=== PATIENT | male | born 1995 | race Caucasian/White ===

== ENCOUNTER 2018-04-25 14:55 | Emergency (ER) | payer MEDICAID, OTHER ==
[2018-04-25 15:30] VITALS: BP 136/84
--- NOTE | 2018-04-25 15:34 | UC ---
Shoulder Pain HPI - HPI Summary HPI Summary: 22 yo male presents with right shoulder pain. He tells me that he initially injured his shoulder in october of 2017 while reaching overhead to fix something at home. At that time had decreased ROM and pain, did not seek medical treatment, and eventually improved. 3 days ago pt was under his trailer fixing a water line and hear a pop and immediate pain in his right shoulder. Since that time has not been able to lift his arm above his head and has had pain. He works as a mixed crop and livestock farmer. Denies numbness or tingling. Has been taking ibuprofen for pain with mild relief. - History of Current Complaint Chief Complaint: UCUpperExtremity Stated Complaint: SHOULDER INJURY Time Seen by Provider: 04/25/18 15:33 Hx Obtained From: Patient Severity Initially: Moderate Severity Currently: Moderate Pain Intensity: 5 Pain Scale Used: 0-10 Numeric Aggravating Factor(s): Movement, Lifting - Allergies/Home Medications Allergies/Adverse Reactions: Allergies Allergy/AdvReac Type Severity Reaction Status Date / Time No Known Allergies Allergy Verified 04/25/18 15:30 Home Medications: Home Medications Diarrhea Medication 04/25/18 [History] PMH/Surg Hx/FS Hx/Imm Hx - Additional Past Medical History Additional PMH: None Previously Healthy: Yes - Surgical History Surgical History: None - Family History Known Family History: Positive: None Negative: Blood Disorder - Social History Occupation: Employed Full-time Lives: With Family Alcohol Use: Weekly Substance Use Type: None Smoking Status (MU): Never Smoked Tobacco Review of Systems Constitutional: Negative Skin: Negative Respiratory: Negative Cardiovascular: Negative Neurovascular: Negative Musculoskeletal: Decreased ROM - Right shoulder, Other: - Right shoulder pain Neurological: Negative Psychological: Negative All Other Systems Reviewed And Are Negative: Yes Physical Exam - Summary Physical Exam Summary: GENERAL: NAD. WDWN. No pain distress. SKIN: No rashes, sores, lesions, or open wounds. NECK: Supple. Nontender. No lymphadenopathy. CHEST: No accessory muscle use. Breathing comfortably and in no distress. CV: RRR. Without m/r/g. Pulses intact radial and ulnar. MSK: RIGHT SHOULDER: TTP over anterior RTC. Flexion to 90 deg before pain. Strength 4/5 compared to left. No edema or obvious bony deformities. Positive neer, apprehension, and pathak. NEURO: Alert. Sensations intact hand and all fingers. PSYCH: Age appropriate behavior. Triage Information Reviewed: Yes Vital Signs: Initial Vital Signs Temp 97.2 F 04/25/18 15:26 Pulse 98 04/25/18 15:26 Resp 16 04/25/18 15:26 BP 136/84 04/25/18 15:26 Pulse Ox 99 04/25/18 15:26 Shoulder Course/Dx - Course Course Of Treatment: XR: IMPRESSION: NEGATIVE EXAMINATION. Suspect RTC injury. Toradol IM 30mg given in clinc. Advised to rest and apply heat. F/u with sports medicine. - Differential Dx/Diagnosis Provider Diagnoses: Right shoulder pain Discharge - Sign-Out/Discharge Documenting (check all that apply): Discharge/Admit/Transfer - Discharge Plan Condition: Stable Disposition: HOME Patient Education Materials: Rotator Cuff Injury (ED) Forms: *Work Release Referrals: Tan Pedro [Primary Care Provider] - [facility] [Provider Group] - As Soon As Possible Additional Instructions: If you develop a fever, shortness of breath, chest pain, new or worsening symptoms - please call your PCP or go to the ED. 1) Rest and Ice your shoulder 2) Please call Sports Medicine at the number below to schedule a follow up appointment as soon as possible - Billing Disposition and Condition Condition: STABLE Disposition: Home
--- NOTE | 2018-04-25 15:55 | RAD ---
INDICATION: Chronic pain right shoulder COMPARISON: None TECHNIQUE: Routine frontal, Y and axial views were obtained. FINDINGS: The bony structures, joint spaces, and soft tissues are normal for age. IMPRESSION: NEGATIVE EXAMINATION.
[2018-04-25] MEDS ORDERED: Ketorolac INJ* 30 MG/ML 1 ML VIAL IM ONE (16:14)
[2018-04-25] MEDS ORDERED: Ketorolac INJ* 30 MG/ML 1 ML VIAL ONE (16:24)
== END 2018-04-25 16:34 | disposition home or self-care (01) ==
LOC: UCEAST 14:55
DX: M25.511 Pain in right shoulder (principal)
CPT/HCPCS: 96372; 99211; G0463; J1885

== ENCOUNTER 2019-01-24 19:14 | Emergency (ER) | payer OTHER, MEDICAID ==
[2019-01-24 19:22] VITALS: BP 129/78
[2019-01-24] MEDS ORDERED: Amoxicillin/Clavulanate TAB* 875 MG PO ONE (19:57)
--- NOTE | 2019-01-24 20:01 | UC ---
Dental HPI - HPI Summary HPI Summary: 23 year old male presents with 4 day history of left upper dental pain. States this morning he woke up with facial swelling as well. He contacted his dentist and he has an appointment in 2 weeks. Has been taking ibuprofen 400 mg every 6 hours with relief in the pain. Denies fever, chills, trismus, sore throat, dysphagia, or difficulty breathing. - History of Current Complaint Chief Complaint: UCDentalProblem Stated Complaint: DENTAL Time Seen by Provider: 01/24/19 19:36 Hx Obtained From: Patient Pain Intensity: 3 - Allergies/Home Medications Allergies/Adverse Reactions: Allergies Allergy/AdvReac Type Severity Reaction Status Date / Time No Known Allergies Allergy Verified 01/24/19 19:23 Home Medications: Home Medications Ibuprofen TAB* [Motrin TAB* 400 MG] 400 mg PO Q6H 01/24/19 [History Confirmed ] PMH/Surg Hx/FS Hx/Imm Hx Previously Healthy: Yes - Denies significant PMH - Surgical History Surgical History: None - Family History Known Family History: Positive: None Negative: Blood Disorder - Social History Occupation: Employed Full-time Lives: With Family Alcohol Use: Occasionally Substance Use Type: None Smoking Status (MU): Never Smoked Tobacco Review of Systems All Other Systems Reviewed And Are Negative: Yes Constitutional: Negative: Fever, Chills ENT: Positive: Dental Pain, Other - facial swelling. Negative: Sore Throat Respiratory: Positive: Negative Cardiovascular: Positive: Negative Gastrointestinal: Positive: Negative Genitourinary: Positive: Negative Musculoskeletal: Positive: Negative Neurological: Positive: Negative Is Patient Immunocompromised?: No Physical Exam - Summary Physical Exam Summary: GENERAL APPEARANCE: Well developed, well nourished, alert and cooperative, and appears to be in no acute distress. HEAD: Mild facial swelling over the left maxilla. THROAT: Pharynx normal. No tonsilar inflammation, swelling, exudate, or lesions. Uvula midline. Multiple teeth in various amounts of decay, tenderness at the base of the 1st left upper molar with erythema and swelling. No induration or fluctuance noted. NECK: Neck supple, non-tender without lymphadenopathy. CARDIAC: Normal S1 and S2. No S3, S4 or murmurs. Rhythm is regular. There is no peripheral edema, cyanosis or pallor. Extremities are warm and well perfused. Capillary refill is less than 2 seconds. Peripheral pulses intact. LUNGS: Clear to auscultation without rales, rhonchi, wheezing or diminished breath sounds. ABDOMEN: Positive bowel sounds. Soft, nondistended, nontender. No guarding or rebound. No masses or hepatosplenomegally. MUSKULOSKELETAL: ROM intact to all extremities. No joint erythema or tenderness. Normal muscular development. Normal gait. SKIN: Skin normal color, texture and turgor with no lesions or eruptions. Triage Information Reviewed: Yes Vital Signs: Initial Vital Signs Temp 98.0 F 01/24/19 19:18 Pulse 95 01/24/19 19:18 Resp 16 01/24/19 19:18 BP 129/78 01/24/19 19:18 Pulse Ox 98 01/24/19 19:18 Vital Signs Reviewed: Yes Dental Complaint Course/Dx - Course Course Of Treatment: 23 year old male presents with 4 day history of left upper dental pain. States this morning he woke up with facial swelling as well. He contacted his dentist and he has an appointment in 2 weeks. Has been taking ibuprofen 400 mg every 6 hours with relief in the pain. Denies fever, chills, trismus, sore throat, dysphagia, or difficulty breathing. Afebrile. VSS. Exam remarkable for some mild left facial swelling over the maxilla, multiple teeth in various amounts of decay, tenderness at the base of the 1st left upper molar with erythema and swelling. No induration or fluctuance noted. Will treat for an early dental abscess with Augmentin 875 mg BID x 10 days. He was given the first dose in the clinic and continue to use the ibuprofen as needed for pain. He is to keep his appointment with his dentist as scheduled. Anticipatory guidance and warning symptoms reviewed with patient. Verbalizes understanding and agrees with POC. - Differential Dx/Diagnosis Differential Diagnosis/Dx: Dental Abscess, Dental Caries, Fractured Tooth, Odontogenic Pain, Peridontic Disease Provider Diagnosis: Dental abscess Discharge - Sign-Out/Discharge Documenting (check all that apply): Patient Departure All imaging exams completed and their final reports reviewed: No Studies - Discharge Plan Condition: Stable Disposition: HOME Prescriptions: Amoxicillin/Clavulanate TAB* [Augmentin TAB 875*] 875 mg PO BID #20 tab Patient Education Materials: Dental Abscess (ED) Referrals: Karn RPA-C,Tan F. [Primary Care Provider] - Additional Instructions: Start Augmentin 875 mg twice daily for 10 days for the dental infection. We gave you a dose of antibiotic in the clinic tonight. Take with food to avoid upset stomach. Be sure to complete the entire course even if feeling better. Take acetaminophen (Tylenol) or ibuprofen (Advil, Motrin) according to directions as needed for pain. Be sure to rinse your mouth out with a warm salt water solution after every time you eat to remove any debris. Keep your appointment with your dentist as scheduled. Seek immediate medical attention in the emergency room if you develop fever greater than 100.5 F, you are unable to open of close your mouth, are unable to swallow, have difficulty breathing, or any worsening of symptoms. - Billing Disposition and Condition Condition: STABLE Disposition: Home
== END 2019-01-24 20:10 | disposition home or self-care (01) ==
LOC: UCEAST 19:14
DX: K04.7 Periapical abscess without sinus (principal)
CPT/HCPCS: 99212; A9270-GY; G0463

== ENCOUNTER 2019-07-09 09:44 | Emergency (ER) | payer BC, MEDICAID, OTHER ==
[2019-07-09 10:00] VITALS: BP 131/90
[2019-07-09] MEDS ORDERED: Ketorolac *IM* INJ* 60 MG/2 ML VIAL IM ONE (10:16)
[2019-07-09] MEDS ORDERED: Carisoprodol TAB* 350 MG PO ONE (10:16)
--- NOTE | 2019-07-09 10:20 | UC ---
Neck Pain HPI - HPI Summary HPI Summary: patient has ahd "neck spasms" many times in past, usually resolves with heat pack within hours. yesterday was moving heavy items and also weed whacking no pain last night but awoke with stiffness L lateral neck, took Tylenol X- strength 4 hours ago w/o relief. has to keep head bent to R and cannot let head bend down d/t pain. drove patient here. pt denies ever having neck injury or accident - History of Current Complaint Chief Complaint: UCBackPain Stated Complaint: NECK PAIN Time Seen by Provider: 07/09/19 10:10 Hx Obtained From: Patient, Family/Emergency Spill Response Technician Onset/Duration: Sudden Onset Severity: Severe Pain Intensity: 6 Location: Discrete At: - L lateral neck and shoulder Character: Sharp, Stiff, Spasmotic Aggravating Factors: Position, Movement Alleviating Factors: Position Associated Signs & Symptoms: Negative: Swelling, Redness, Fever, Weakness, Headache Related History: Similar Episode/Dx As: - muscle spasm - Allergies/Home Medications Allergies/Adverse Reactions: Allergies Allergy/AdvReac Type Severity Reaction Status Date / Time No Known Allergies Allergy Verified 07/09/19 09:55 Home Medications: Home Medications Acetaminophen [Acetaminophen Extra Strength] 1,000 mg PO ONCE 07/09/19 [History Confirmed 07/09/19] PMH/Surg Hx/FS Hx/Imm Hx Previously Healthy: Yes - Surgical History Surgical History: None - Family History Known Family History: Positive: None Negative: Blood Disorder - Social History Occupation: Employed Full-time Lives: With Family Alcohol Use: Weekly Substance Use Type: None Smoking Status (MU): Never Smoked Tobacco Review of Systems All Other Systems Reviewed And Are Negative: Yes Constitutional: Positive: Negative Skin: Positive: Negative. Negative: Rash Respiratory: Positive: Negative Cardiovascular: Positive: Negative Musculoskeletal: Positive: Other: - neck pain, decreased ROM Neurological: Positive: Negative. Negative: Headache, Weakness Psychological: Positive: Negative Is Patient Immunocompromised?: No Physical Exam Triage Information Reviewed: Yes Appearance: Well-Appearing, No Pain Distress, Well-Nourished Vital Signs: Initial Vital Signs Temp 98 F 07/09/19 09:56 Pulse 75 07/09/19 09:56 Resp 18 07/09/19 09:56 BP 131/90 07/09/19 09:56 Pulse Ox 99 07/09/19 09:56 Vital Signs Reviewed: Yes Neck: Positive: No Lymphadenopathy, Tenderness @ - L lateral neck, patient keeps neck flexed to R for comfort Respiratory Exam: Normal Respiratory: Positive: Lungs clear Cardiovascular Exam: Normal Cardiovascular: Positive: RRR Neurological Exam: Normal Psychological Exam: Normal Skin Exam: Normal Skin: Negative: Rashes Re-Evaluation - Re-Evaluation First Eval Re-Evaluation Time: 10:50 - patient reports neck spasms are improving, less painful. lasting shorter periods of time Change: Improved Neck Pain Course/Dx - Differential Dx/Diagnosis Differential Dx/HQI/PQRI: Meningitis, Strain, Torticollis, Trauma Provider Diagnosis: Neck muscle spasm Discharge ED - Sign-Out/Discharge Documenting (check all that apply): Patient Departure All imaging exams completed and their final reports reviewed: No Studies - Discharge Plan Condition: Improved Disposition: HOME Prescriptions: Carisoprodol TAB* [Soma TAB*] 350 mg PO Q6H PRN #12 tab MDD 4 PRN Reason: Spasms Patient Education Materials: Muscle Spasm (ED) Forms: *Work Release Referrals: Tan Pisano PA [Primary Care Provider] - 2 Days (if no better) Additional Instructions: Do not take ibuprofen or Aleve today start ibuprofen 800mg every 6-8 hours as needed for pain use the muscle relaxer (SOMA) as directed - do not drive or drink alcohol while using report to ER if your pain worsens - Billing Disposition and Condition Condition: IMPROVED Disposition: Home - Attestation Statements Provider Attestation: I was available for consult. This patient was seen by the MAVERICK. The patient was not presented to , seen by or examined by ne -Bill Mallory MD
== END 2019-07-09 11:25 | disposition home or self-care (01) ==
LOC: UCEAST 09:44
DX: M62.838 Other muscle spasm (principal)
CPT/HCPCS: 96372; 99212; A9270-GY; G0463; J1885

== ENCOUNTER 2019-07-10 22:12 | Emergency (ER) | payer BC ==
[2019-07-10 22:29] VITALS: BP 130/87
== END 2019-07-10 23:44 | disposition left against medical advice (07) ==
LOC: ED 22:12
DX: M54.2 Cervicalgia (principal); Z53.21 Procedure and treatment not carried out due to patient leaving prior to being seen by health care provider
CPT/HCPCS: 99282

== ENCOUNTER 2019-08-28 09:46 | Emergency (ER) | payer OTHER, MEDICAID ==
[2019-08-28 09:55] VITALS: BP 126/80
--- NOTE | 2019-08-28 10:01 | UC ---
Skin Complaint HPI - HPI Summary HPI Summary: Patient is a 24yo male presenting with for "intense itchiness" of b/l palms and b/l soles of feet x7 days. Patient also notes swelling of hands and fingers of both hands since yesterday. Denies swelling of other body parts including lips, tongue, and throat. Denies difficulty breathin and wheezing. Denies anything like this in the past. Denies FHx of anything like this. 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 Patient states he has taken benadryl and zyrtec without relief. - History of Current Complaint Chief Complaint: UCUpperExtremity Stated Complaint: FINGER AND HAND SWELLING Hx Obtained From: Patient, Family/Librarian [employer] Collections Onset/Duration: Sudden Onset, Lasting Days Timing: Constant Current Severity: Moderate Pain Intensity: 6 Pain Scale Used: 0-10 Numeric - Allergy/Home Medications Allergies/Adverse Reactions: Allergies Allergy/AdvReac Type Severity Reaction Status Date / Time No Known Allergies Allergy Verified 08/28/19 09:54 Home Medications: Home Medications diphenhydrAMINE HCl [Benadryl Allergy] 50 mg PO 08/28/19 [History] PMH/Surg Hx/FS Hx/Imm Hx Previously Healthy: Yes - Surgical History Surgical History: None - Family History Known Family History: Positive: None Negative: Blood Disorder - Social History Occupation: Employed Full-time Lives: With Family Alcohol Use: Weekly Substance Use Type: None Smoking Status (MU): Never Smoked Tobacco Review of Systems All Other Systems Reviewed And Are Negative: Yes Constitutional: Positive: Negative Skin: Positive: Rash - b/l hands and feet ENT: Positive: Negative Respiratory: Positive: Negative. Negative: Shortness Of Breath Cardiovascular: Positive: Negative Gastrointestinal: Positive: Negative Musculoskeletal: Positive: Edema - b/l hands/fingers Physical Exam Triage Information Reviewed: Yes Appearance: Well-Appearing, No Pain Distress, Well-Nourished Vital Signs: Initial Vital Signs Temp 98.2 F 08/28/19 09:52 Pulse 92 08/28/19 09:52 Resp 18 08/28/19 09:52 BP 126/80 08/28/19 09:52 Pulse Ox 99 08/28/19 09:52 Vital Signs Reviewed: Yes Eyes: Positive: Conjunctiva Clear ENT: Positive: Hearing grossly normal, Pharynx normal - NO EDEMA, Uvula midline , Other - no edema of lips or tongue. Negative: Tonsillar swelling, Trismus, Muffled voice Neck: Positive: Supple Respiratory Exam: Normal Respiratory: Positive: Lungs clear, Normal breath sounds, No respiratory distress. Negative: Crackles, Rhonchi, Stridor, Wheezing Cardiovascular Exam: Normal Cardiovascular: Positive: RRR Musculoskeletal: Positive: Edema @ - b/l hands and fingers Neurological: Positive: Alert Psychological: Positive: Age Appropriate Behavior Skin: Positive: Rashes - pruritic reticulated rash noted over b/l palms and b/l soles of feet Course/Dx - Course Course Of Treatment: Educated patient on urticaria, angioedema, and possible allergic source of symptoms. I treated with prednisone and instructed to limit exposure as much as possible. He may also continue zyrtec and benadry to alleviate symptoms. Instructed to follow up with PCP if symptoms persist or to go to ED if they worsen, including signs of anaphylaxis. Patient voiced understanding and agreed with the treatment plan. - Diagnoses Provider Diagnosis: Idiopathic [id number] Discharge ED - Sign-Out/Discharge Documenting (check all that apply): Patient Departure All imaging exams completed and their final reports reviewed: No Studies - Discharge Plan Condition: Stable Disposition: HOME Prescriptions: predniSONE TAB* [Deltasone 20 MG TAB*] 40 mg PO DAILY #10 tab Patient Education Materials: Urticaria (ED), Angioedema (ED) Forms: *Work Release Referrals: Tan Pisano PA [Primary Care Provider] - If Needed Additional Instructions: As discussed, take prednisone as prescribed to help reduce itching and swelling. You may continue to take benadryl and zyrtec as directed. Limit contact with possible allergens as much as possible. Follow up with your PCP if symptoms persist. Go to the emergency room if you experience difficulty breathing or lip, tongue, or throat swelling. - Billing Disposition and Condition Condition: STABLE Disposition: Home
== END 2019-08-28 10:27 | disposition home or self-care (01) ==
LOC: UCEAST 09:46
DX: T78.3XXA Angioneurotic edema, initial encounter (principal); L50.1 Idiopathic urticaria
CPT/HCPCS: 99212; G0463

== ENCOUNTER 2019-08-29 11:44 | Emergency (ER) | payer OTHER, MEDICAID ==
[2019-08-29] MEDS ORDERED: Albuterol HFA INHALER* 8 gm MDI INH ONE (13:40)
[2019-08-29 14:04] VITALS: BP 134/72
--- NOTE | 2019-08-29 15:10 | ED ---
Allergic Reaction/Systemic - HPI Summary HPI Summary: This patient is a 24-year-old male with no past significant medical history presenting to the ED with possible allergic reaction. 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 On this date, he developed swelling of the bilateral hands and feet and mild cough. He was seen at urgent care, given Benadryl and prednisone with good relief. The next day he returned and started to develop a worsening cough and feelings of throat tightness. Today he presents with mild swelling of his hands and feet and feeling of throat tightness. He took Benadryl at home and on arrival to the ED , patient states he feels improved. He does feel as though he has been wheezing , but denies this currently. Family at bedside states he had asthma as a child and feels he may have this again he denies any hives or other rash. Denies any pruritus. - History of Current Complaint Chief Complaint: EDAllergicReaction Time Seen by Provider: 08/29/19 13:11 Hx Obtained From: Patient Onset/Duration: Sudden Onset Timing: Constant Severity Initially: Moderate Severity Currently: Moderate Pain Intensity: 0 Pain Scale Used: 0-10 Numeric Associated Signs And Symptoms: Positive: Cough Wheezing, Throat Tightening. Negative: Difficulty Breathing, Hoarseness, Lightheadedness, Nausea, Syncope, Vomiting - Allergies/Home Medications Allergies/Adverse Reactions: Allergies Allergy/AdvReac Type Severity Reaction Status Date / Time No Known Allergies Allergy Verified 08/29/19 12:09 PMH/Surg Hx/FS Hx/Imm Hx Previously Healthy: Yes Endocrine/Hematology History: Denies: Hx Diabetes, Hx Thyroid Disease Cardiovascular History: Denies: Hx Hypertension Respiratory History: Denies: Hx Asthma, Hx Chronic Obstructive Pulmonary Disease (COPD) GI History: Denies: Hx Ulcer - Immunization History Hx Pertussis Vaccination: No Immunizations Up to Date: Yes Infectious Disease History: No Infectious Disease History: Denies: Hx Hepatitis, Hx Human Immunodeficiency Virus (HIV), Traveled Outside the [place] in Last 30 Days - Family History Known Family History: Positive: None Negative: Blood Disorder - Social History Occupation: Employed Full-time Lives: With Family Alcohol Use: Weekly Hx Substance Use: No Substance Use Type: Reports: None Hx Tobacco Use: No Smoking Status (MU): Never Smoked Tobacco Review of Systems Negative: Fever, Chills, Fatigue, Skin Diaphoresis Negative: Palpitations, Chest Pain Negative: Shortness Of Breath, Cough Genitourinary: Negative Positive: no symptoms reported, see HPI Negative: Arthralgia, Myalgia Skin: Negative Neurological: Negative All Other Systems Reviewed And Are Negative: Yes Physical Exam Triage Information Reviewed: Yes Vital Signs On Initial Exam: Initial Vitals Temp Pulse Resp BP Pulse Ox 98.2 F 95 16 157/84 98 08/29/19 12:03 08/29/19 12:03 08/29/19 12:03 08/29/19 12:03 08/29/19 12:03 Vital Signs Reviewed: Yes Appearance: Positive: Well-Appearing, No Pain Distress, Well-Nourished Skin: Positive: Warm, Skin Color Reflects Adequate Perfusion Head/Face: Positive: Normal Head/Face Inspection Eyes: Positive: EOMI, JOELLE, Conjunctiva Clear Neck: Positive: Supple, Nontender, No Lymphadenopathy Respiratory/Lung Sounds: Positive: Clear to Auscultation, Breath Sounds Present Cardiovascular: Positive: RRR, Pulses are Symmetrical in both Upper and Lower Extremities Musculoskeletal: Positive: Normal, Strength/ROM Intact Neurological: Positive: Speech Normal Psychiatric: Positive: Normal, Affect/Mood Appropriate AVPU Assessment: Alert Procedures - Sedation Patient Received Moderate/Deep Sedation with Procedure: No Diagnostics - Vital Signs Vital Signs Temp Pulse Resp BP Pulse Ox 08/29/19 14:02 97.8 F 84 16 134/72 100 08/29/19 12:03 98.2 F 95 16 157/84 98 - Laboratory Lab Statement: Any lab studies that have been ordered have been reviewed, and results considered in the medical decision making process. Allergic Reaction Course/Dx - Course Course Of Treatment: During his course of treatment, the patient is evaluated for a possible allergic reaction. Patient was given prednisone and Benadryl 2 days ago with good relief of his symptoms. When he enters the work environment again, he states symptoms persist and he had cough, congestion and feeling of throat tightness today. He also had some wheezing which is since resolved. He took his prednisone and Benadryl prior to arrival. He states he is feeling improved. He was given an albuterol inhaler in the ED. Lungs CTA, RRR. No obvious signs of distress. Airway patent. No wheezing bilaterally. Patient is encouraged to not return to his place of work as this is a new environment which is causing his new symptoms. He will continue to take the prednisone and Benadryl as prescribed. Patient is encouraged inhaler, note given for work and follow up with pulmonology d/t his wheezing symptoms over the past few months. - Diagnoses Differential Diagnosis/HQI/PQRI: Positive: Anaphylaxis, Angioedema, Bronchospasm , Local Allergic Reaction Provider Diagnoses: Allergic reaction Discharge ED - Sign-Out/Discharge Documenting (check all that apply): Patient Departure - Discharge Plan Condition: Good Disposition: HOME Patient Education Materials: General Allergic Reaction (ED), Allergy Testing ( ED) Forms: *Work Release Referrals: Tan Pisano PA [Primary Care Provider] - Chio Smalls MD [Medical Doctor] - Additional Instructions: Please follow up with pulmonology and also obtain allergy testing Continue taking Prednisone once daily in the morning Benadryl for continuing symptoms Albuterol inhaler as needed for any shortness of breath - Billing Disposition and Condition Condition: GOOD Disposition: Home - Attestation Statements Provider Attestation: I was available for consult. This patient was seen by the MAVERICK. The patient was not presented to, seen by, or examined by me. -Geovani
== END 2019-08-29 14:02 | disposition home or self-care (01) ==
LOC: ED 11:44
DX: M79.89 Other specified soft tissue disorders (principal); R07.0 Pain in throat; T78.40XA Allergy, unspecified, initial encounter; X58.XXXA Exposure to other specified factors, initial encounter
CPT/HCPCS: 99282; A9270-GY

== ENCOUNTER 2019-11-02 18:43 | Emergency (ER) | payer OTHER, MEDICAID ==
--- OUTSIDE RECORDS SUMMARY | 2019-11-02 18:48 | XMS REPORT | Continuity of Care Document ---
:1995 External Reference #:[id number] Author Name CASE Francisco (transmitted by agent of provider Omar Ragsdale) Address [address] [facility] [place] [address] Care Team Providers Name Role Phone Tan Pisano RPA-C - Physician Care Team Information Personal Lines Account Manager [phone] Record Producer Problems Active Problems Provider Date Food anaphylaxis Hailey Gamez, RPA-C Onset: 09/12/2019 Social History Type Date Description Comments Sex Unknown Tobacco Use Start: Unknown Patient has never smoked Smoking Status Reviewed: 09/28/19 Patient has never smoked Allergies, Adverse Reactions, Alerts Description No Known Drug Allergies Medications Active Medications SIG Qnty Indications Ordering Provider Date Cetirizine HCL take one tablet 30tabs T78.09xA Juan David Jones, 09/12/2019 10mg by mouth every RPA-C Tablets day at bedtime Immunizations Description No Information Available Vital Signs Date Vital Result Comment 09/28/2019 9:34am BP Systolic 124 mmHg BP Diastolic 86 mmHg Height 72 inches 6'0" Heart Rate 84 /min Respiratory Rate 16 /min Body Temperature 98.0 F O2 % BldC Oximetry 98 % 09/12/2019 8:30am BP Systolic 140 mmHg BP Diastolic 92 mmHg Height 72 inches 6'0" Weight 258.00 lb BMI (Body Mass Index) 35.0 kg/m2 Heart Rate 92 /min Respiratory Rate 16 /min Body Temperature 98.2 F O2 % BldC Oximetry 98 % Results Description No Information Available Procedures Date Code Description Status 09/12/2019 91943 Allergy Tests Percutaneous W/ Allergenic Extracts Completed Medical Devices Description No Information Available Encounters Type Date Location Provider Dx Diagnosis Office Visit 09/28/2019 [place] CASE Francisco T78.09xA Anaphylactic reaction 9:30a due to oth food products, init encntr Office Visit 09/12/2019 D[facility] Quach T78.09xA Anaphylactic reaction 8:30a Fenst[place]acher, due to oth food RPA-C products, init encntr Assessments Date Code Description Provider 09/28/2019 T78.09xA Anaphylactic reaction due to other CASE Francisco food products, initial encounter 09/12/2019 T78.09xA Anaphylactic reaction due to other Hailey Hubbard. Fenstermacher, RPA-C food products, initial encounter Plan of Treatment 09/28/2019 - Rolf Freeman, PAT78.09xA Anaphylactic reaction due to other food products, initial encounterComments:Patient's skin test for foods showed negative to all foods tested. Patient's total IgE is 60.8 kU/l. Patient's RAST test for latex was negative. Patient to continue cetirizine as needed for itchy skin. Patient has an EpiPen. Patient knows how and when to use his EpiPen. Patient to carry EpiPen with him at all times.Follow up:as needed Functional Status Description No Information Available Mental Status Description No Information Available Referrals Description No Information Available
[2019-11-02 19:01] VITALS: BP 154/91
--- NOTE | 2019-11-02 19:09 | UC ---
Abdominal Pain Male HPI - HPI Summary HPI Summary: 24 yo male presents with abdominal pain. He tells me that for the last ~6months he has had abdominal pain and nausea. He developed abdominal pain that is mostly epigastric in nature and described as a burning accompanied by nausea. He has seen his PCP multiple times for this and has been placed on antacids and PPIs with no change in his symptoms. Over the last 2-3 weeks has been vomiting "yellow bile' every morning. States abdominal pain worsens when he eats, therefore he hasn't eaten much. States he is chronically constipated with small hard stools. He denies SOB, chest pain, back pain, diarrhea, fever. Fam hx of Crohn's disease, but no personal hx of this. He has never seen GI. - History of Current Complaint Chief Complaint: UCAbdominalPain Stated Complaint: ABDOMINAL PAIN Time Seen by Provider: 11/02/19 18:50 Hx Obtained From: Patient Onset/Duration: Gradual Onset Severity Initially: Moderate Severity Currently: Moderate Pain Intensity: 6 Pain Scale Used: 0-10 Numeric - Allergies/Home Medications Allergies/Adverse Reactions: Allergies Allergy/AdvReac Type Severity Reaction Status Date / Time No Known Allergies Allergy Verified 11/02/19 19:02 Home Medications: Home Medications Omeprazole CAP (NF) [Prilosec CAP* 20 MG] 1 tab PO DAILY 11/02/19 [History Confirmed 11/02/19] PMH/Surg Hx/FS Hx/Imm Hx GI/ History: Gastroesophageal Reflux - Surgical History Surgical History: None - Family History Known Family History: Positive: Other - Crohn's Negative: Blood Disorder - Social History Occupation: Employed Full-time Lives: With Family Alcohol Use: Weekly Substance Use Type: None Smoking Status (MU): Never Smoked Tobacco Review of Systems All Other Systems Reviewed And Are Negative: No Constitutional: Positive: Negative Skin: Positive: Negative Eyes: Positive: Negative ENT: Positive: Negative Respiratory: Positive: Negative Cardiovascular: Positive: Negative Gastrointestinal: Positive: Abdominal Pain, Vomiting, Nausea Neurovascular: Positive: Negative Neurological: Positive: Negative Psychological: Positive: Negative Physical Exam - Summary Physical Exam Summary: GENERAL: NAD. Obese SKIN: No rashes, sores, lesions, or open wounds. NECK: Supple. Nontender. No lymphadenopathy. CHEST: CTAB. No r/r/w. No accessory muscle use. Breathing comfortably and in no distress. CV: RRR. Pulses intact. Cap refill <2seconds ABDOMEN: Soft. NTTP. No distention or guarding. No CVA tenderness. Bowel sounds present. Negative mckeon sign. No mcburney point tenderness. NEURO: Alert. PSYCH: Age appropriate behavior. Triage Information Reviewed: Yes Vital Signs: Initial Vital Signs Temp 98.5 F 11/02/19 18:53 Pulse 87 11/02/19 18:53 Resp 15 11/02/19 18:53 BP 154/91 11/02/19 18:53 Pulse Ox 97 11/02/19 18:53 Vital Signs Reviewed: Yes Abd Pain Male Course/Dx - Course Course Of Treatment: Exam is unremarkable and VSS. Discussed with the pt a referral to GI, but states he cannot do this without seeing his PCP due to insurance issues. I recommended that if his pain worsens or if he develops a fever or new symptoms to go to the ED -- otherwise encouraged to f/u with his PCP and inquire about a referral to GI. Will also provide him with a number for a new PCP as he voices trust issues with his current PCP. He declined labwork today. - Differential Dx/Clinical Impression Provider Diagnosis: Abdominal pain in male, Nausea Discharge ED - Sign-Out/Discharge Documenting (check all that apply): Patient Departure All imaging exams completed and their final reports reviewed: No Studies - Discharge Plan Condition: Stable Disposition: HOME Patient Education Materials: Abdominal Pain (ED) Referrals: Tan Pisano PA [Primary Care Provider] - Fior Gtz NP [Nurse Practitioner] - As Soon As Possible - Billing Disposition and Condition Condition: STABLE Disposition: Home
== END 2019-11-02 19:15 | disposition home or self-care (01) ==
LOC: UCEAST 18:43
DX: R10.9 Unspecified abdominal pain (principal); R11.2 Nausea with vomiting, unspecified; K21.9 Gastro-esophageal reflux disease without esophagitis; Z79.899 Other long term (current) drug therapy
CPT/HCPCS: 99211; G0463

== ENCOUNTER 2019-11-02 19:38 | Observation (INO) | payer OTHER, MEDICAID ==
--- NOTE | 2019-11-02 21:24 | ED ---
Abdominal Pain/Male - HPI Summary HPI Summary: Pt is a 24 y/o M presenting to the ED with a chief complaint of abd pain initially onset about 6 months ago with heartburn. He states it worsened and he began experiencing N/V, so he went to his PCP and was Rxed Omeprazole. As of about 1 week ago, the pain in his epigastric region had mostly alleviated, but the pain moved to his lower abd. It has gotten so severe that hell become diaphoretic and pale from the pain. He denies CP, diarrhea, SOB, blood in stool , or blood in vomit. Notes some FHx of Crohns. - History of Current Complaint Chief Complaint: EDAbdPain Stated Complaint: LOWER ABD PAIN PER PT Time Seen by Provider: 11/02/19 21:17 Hx Obtained From: Patient Onset/Duration: Gradual Onset, Lasting Weeks, Still Present Timing: Constant, Lasting Days Severity Initially: Moderate Severity Currently: Moderate Pain Intensity: 6 Pain Scale Used: 0-10 Numeric Location: Umbilical Radiates: No Aggravating Factor(s): Food Alleviating Factor(s): Nothing Associated Signs And Symptoms: Positive: Diaphoresis, Dizzy, Nausea, Vomiting. Negative: Chest Pain, Blood in Stool, Diarrhea - Allergies/Home Medications Allergies/Adverse Reactions: Allergies Allergy/AdvReac Type Severity Reaction Status Date / Time No Known Allergies Allergy Verified 11/02/19 19:02 Home Medications: Home Medications Omeprazole CAP (NF) [Prilosec CAP* 20 MG] 20 mg PO DAILY 11/02/19 [History Confirmed 11/02/19] PMH/Surg Hx/FS Hx/Imm Hx Previously Healthy: Yes Endocrine/Hematology History: Denies: Hx Diabetes, Hx Thyroid Disease Cardiovascular History: Denies: Hx Hypertension Respiratory History: Denies: Hx Asthma, Hx Chronic Obstructive Pulmonary Disease (COPD) GI History: Denies: Hx Ulcer Infectious Disease History: No Infectious Disease History: Denies: Hx Hepatitis, Hx Human Immunodeficiency Virus (HIV), Traveled Outside the [place] in Last 30 Days - Family History Known Family History: Positive: Other - Crohn's Negative: Blood Disorder - Social History Alcohol Use: Weekly Hx Substance Use: No Substance Use Type: Reports: None Hx Tobacco Use: No Smoking Status (MU): Never Smoked Tobacco Review of Systems Positive: Skin Diaphoresis Negative: Chest Pain Negative: Shortness Of Breath Positive: Abdominal Pain, Vomiting, Nausea. Negative: Diarrhea Neurological: Other - lightheadedness, dizziness All Other Systems Reviewed And Are Negative: Yes Physical Exam - Summary Physical Exam Summary: Appearance: Well-appearing, Well-nourished, lying in bed comfortably Skin: Warm, dry, no obvious rash Eyes: sclera anicteric, no conjunctival pallor ENT: mucous membranes moist, pharynx appears normal Neck: Supple, nontender Respiratory: Clear to auscultation, no signs of respiratory distress Cardiovascular: Normal S1, S2. No murmurs. Normal distal pulses in tibial and radial bilaterally. Abdomen: Soft, RLQ tenderness without guarding or rebound, normal active bowel sounds present Musculoskeletal: Normal, Strength/ROM Intact Neurological: A&Ox3, awake and alert, mentation is normal, speech is fluent and appropriate Psychiatric: affect is normal, does not appear anxious or depressed Triage Information Reviewed: Yes Vital Signs On Initial Exam: Initial Vitals Temp Pulse Resp BP Pulse Ox 97.1 F 79 20 146/79 98 11/02/19 19:39 11/02/19 19:39 11/02/19 19:39 11/02/19 19:39 11/02/19 19:39 Vital Signs Reviewed: Yes Procedures - Sedation Patient Received Moderate/Deep Sedation with Procedure: No Diagnostics - Vital Signs Vital Signs Temp Pulse Resp BP Pulse Ox 11/02/19 19:39 97.1 F 79 20 146/79 98 - Laboratory Result Diagrams: 11/02/19 21:43 11/02/19 21:43 Lab Statement: Any lab studies that have been ordered have been reviewed, and results considered in the medical decision making process. - CT CT a/p CT Interpretation Completed By: Radiologist Summary of CT Findings: Acute uncomplicated appendicitis. ED physician has reviewed this report. Abdominal Pain Male Course/Dx - Course Course Of Treatment: Pt is a 24 y/o M presenting to the ED with a chief complaint of abd pain initially onset about 6 months ago with heartburn. He states it worsened and he began experiencing N/V, so he went to his PCP and was Rxed Omeprazole. As of about 1 week ago, the pain moved to his lower abd. It has gotten so severe that hell become diaphoretic and pale from the pain. He denies CP, diarrhea, SOB, blood in stool, or blood in vomit. Notes some FHx of Crohns. On exam, pt has RLQ tenderness without guarding or rebound. CT a/p shows: Acute uncomplicated appendicitis. I spoke with Dr. Scott of surgery at 0030 who will come to evaluate pt. - Diagnoses Provider Diagnoses: Appendicitis Discharge ED - Sign-Out/Discharge Documenting (check all that apply): Patient Departure - Discharge Plan Condition: Good Disposition: ADMITTED TO [facility] - Billing Disposition and Condition Condition: GOOD Disposition: Admitted to [facility] - Attestation Statements Document Initiated by Scribe: Yes Documenting Scribe: Cindy Nair Provider For Whom Scribe is Documenting (Include Credential): Rodolfo Bonner MD. Scribe Attestation: ICindy, arlened for Rodolfo Bonner MD. on 11/07/19 at 0141. Scribe Documentation Reviewed: Yes Provider Attestation: The documentation as recorded by the scribe, Cindy Nair accurately reflects the service I personally performed and the decisions made by me, Rodolfo Bonner MD. Status of Scribe Document: Viewed
[2019-11-02 21:48] LABS: ABS Eosinophils 0.3 10^3/ul (0-0.6); ABS Lymphocytes 3.7 10^3/ul (1.0-4.8); ABS Monocytes 0.7 10^3/ul (0-0.8); ABS Neutrophils 4.8 10^3/ul (1.5-7.7); Eosinophil % 3.5 %; Hematocrit 43 % (42-52); Hemoglobin 15.1 g/dL (14.0-18.0); Lymphocyte % 38.1 %; Mean Corpuscular HGB Conc 35 g/dL (31-36); Mean Corpuscular Hemoglobin 31 pg (27-31); Mean Corpuscular Volume 90 fL (80-94); Mean Platelet Volume 6.7 fL (7.4-10.4); Nucleated Red Blood Cells % 0.1; Platelet Count 308 10^3/uL (150-450); Red Blood Count 4.83 10^6 /uL (4.18-5.48); Red Cell Distribution Width 13 % (10-15); White Blood Count 9.6 10^3/uL (3.5-10.8)
[2019-11-02 22:08] LABS: Albumin 4.6 g/dL (3.2-5.2); Albumin/Globulin Ratio 1.6 (1-3); BUN/Creatinine Ratio 15.6 (8-20); C Reactive Protein 2.83 mg/L (<8.01); Calcium 9.5 mg/dL (8.6-10.3); EGFR African American 126.5 (>60); EGFR Non-African American 104.6 (>60); Globulin 2.9 g/dL (2-4); Potassium 3.6 mmol/L (3.5-5.0); Total Bilirubin 0.6 mg/dL (0.2-1.0); Total Protein 7.5 g/dL (6.4-8.9)
[2019-11-02] MEDS ORDERED: Iohexol 300* (CONTRAST) 10 ML SDV IV ONE (22:38)
[2019-11-03] MEDS ORDERED: Piperacillin/Tazobac ADVAN(*) 3.375 GM in NS 0.9% 100 ML* 100 ML IVPB ONE (00:17)
[2019-11-03] MEDS ORDERED: Ondansetron INJ* 2 MG/ML VIAL IV PRN (00:34)
[2019-11-03] MEDS ORDERED: HYDROmorphone INJ* 0.5 MG/0.5 ML SYRINGE IV SLOW PU PRN (00:34)
[2019-11-03] MEDS ORDERED: Acetaminophen TAB* 325 MG PO PRN (00:34)
[2019-11-03] MEDS ORDERED: NS 0.9% 1000 ML** 1,000 ML IV ONE (00:35)
[2019-11-03 00:55] LABS: Urine Appearance Clear; Urine Bilirubin Negative (Negative); Urine Blood Negative (Negative); Urine Color Straw; Urine Glucose Negative (Negative); Urine Ketones Negative (Negative); Urine Nitrite Negative (Negative); Urine Protein Negative (Negative); Urine Specific Gravity 1.041 (1.010-1.030); Urine Urobilinogen Negative (Negative)
[2019-11-03] MEDS: NS 0.9% 1000 ML** 1,000 ML IV SCH ×2 (02:52→12:53)
[2019-11-03] MEDS: Piperacillin/Tazobactam VIAL*) 3.375 GM in NS 0.9% 100 ML* 100 ML IVPB SCH ×2 (04:13→12:52)
--- NOTE | 2019-11-03 10:16 | PN ---
Progress Note - Progress Note Date of Service: 11/03/19 Note: Brief Note (H&P dictated): cc: abd pain HPI: 24 yo gen healthy male w/ 2 wks of abd pain. This began in the upper abd, but gradually moved to the lower abd. Assoc w/ anorexia, vomiting. Minimal improvement w/ omeprazole. Presented to [facility], then to ED. PE: (examined w/ Dr. Scott) Heart: reg Lungs: clear Abd: +BS; obese; soft, w/ mild to moderate tenderness RLQ; no guarding, rigidity , or referred tenderness Labs: essentially normal, incl WBC, LA, CRP CT A&P w/ po/IV contrast: appendix enlarged w/ mild periappendiceal stranding; no free air or collections A: subacute appendicitis P: lap appy today; patient understands and agrees
--- NOTE | 2019-11-03 10:49 | HP ---
CC: CASE Foreman in [place] * DATE OF ADMISSION: 11/03/19 SURGEON: Dr. Farida Scott * (DICTATED BY CASE OAKES) CHIEF COMPLAINT: Abdominal pain. HISTORY OF PRESENT ILLNESS: This is a 24-year-old generally healthy male who has been experiencing abdominal pain beginning about 2 weeks ago. This was preceded by a period of a few months of GERD symptoms. Beginning about 2 weeks ago he began to experience upper abdominal pain and what he describes as heartburn. He was seen by his MAKE UP ARTIST about a week and a half ago and was prescribed omeprazole. This did help with his heartburn symptoms, but his pain subsequently moved to the lower abdomen and became worse. He has had daily symptoms, primarily in the morning, sometimes accompanied by bilious vomiting. He has had decreased appetite, but denies fever or chills. He has not had any lower GI symptoms other than possibly a bit of increased constipation. He denies any blood per rectum. His pain, again, did move from upper to mid abdomen beginning about a week ago and the last couple of days pain had moved to the lower abdomen. He was seen again by his primary care provider 2 days ago , but told to continue omeprazole. He has not had any prior abdominal surgeries. He denies any symptoms. PAST MEDICAL HISTORY: He is obese. He reports no other ongoing or active medical problems. PAST SURGICAL HISTORY: His surgeries include tonsillectomy remotely, no problems reported. MEDICATIONS: Omeprazole 40 mg once daily. DRUG ALLERGIES: None. FAMILY HISTORY: Negative for anesthesia problems, bleeding or clotting disorders. SOCIAL HISTORY: Patient is , he has 2 children. He works as a air duct mechanic. He is a nonsmoker. He drinks approximately 2 drinks per week. He denies any recreational drug use. REVIEW OF SYSTEMS: As per the HPI. No additions. HEENT: No problems reported. Cardiovascular: No chest pain, palpitations or history of heart murmur. Respiratory: No history of asthma, chronic cough or shortness of breath. GI: As above per HPI. : No additional symptoms. Endocrine: No diabetes or thyroid dysfunction. PHYSICAL EXAMINATION GENERAL: A well nourished somewhat obese male in no acute distress. He appears comfortable lying on the bed. VITAL SIGNS: Height 6 feet. Weight 261 pounds. BMI 35.5. Temperature this morning 98.2. Blood pressure 111/54. Pulse 70. Respirations 18. SKIN: Warm and dry. No suspicious rashes or lesions. HEENT: Pupils are equal, round, reactive. EOMs intact. No conjunctival pallor or scleral icterus. Oropharynx: Mucous membranes dry. Teeth in good repair. No intraoral lesions. NECK: No lymphadenopathy, thyromegaly, or masses. LUNGS: Clear to auscultation. No wheezes. HEART: Regular rate and rhythm. No murmur noted. ABDOMEN: Obese, soft, mild to moderate tenderness in the right lower quadrant without rebound, guarding, rigidity or referred tenderness. No palpable masses or organomegaly. No palpable hernias. : Genitalia not specifically examined. RECTAL: Not done. BACK: No spinous process or CVA tenderness. EXTREMITIES: No edema. NEUROLOGIC: Grossly intact. LABORATORY DATA: White blood cell count 9600, hemoglobin 15.1, normal differential. Chemistries essentially normal including electrolytes, BUN and creatinine, liver function tests, lactic acid and CRP (2.8). IMAGING: CT of the abdomen and pelvis with IV and oral contrast was reviewed personally. This does show a dilated appendix measuring up to 1.2 cm in diameter. The radiologist does describe some mild periappendiceal stranding. No other significant pathology noted. IMPRESSION: Likely subacute appendicitis. PLAN/RECOMMENDATIONS: Patient was seen and examined with Dr. Scott. He has been put on the OR schedule for laparoscopic appendectomy for sometime later today. Patient understands the indications for surgery, the risks, benefits and alternatives and would like to proceed as scheduled with laparoscopic appendectomy. CASE OAKES [id number]/CPS #: [id number] Addendum: I agree with the plan above. I saw and examined this patient with CASE Batres. Briefly, he is a healthy 24 yo M with 2 weeks of RLQ abdominal pain that worsened prior to admission. I reviewed his CT which showed a dilated appendix, consistent with acute appendicitis. Plan for OR for laparoscopic appendectomy. [facility] H[facility]PITALCheko
[2019-11-03] MEDS ORDERED: Buffered Lidocaine 1% SYRIN* 1 ML/SYRINGE INTRADERM ONE (15:14)
[2019-11-03] MEDS ORDERED: Famotidine IV* 10 MG/ML 2 ML (20 mg) IV ONE (15:14)
[2019-11-03] MEDS ORDERED: Ondansetron INJ* 2 MG/ML VIAL IV ONE (15:14)
[2019-11-03] MEDS ORDERED: Dexamethasone IV* 4 MG/ML 1 ML (4 MG) IV SLOW PU ONE (15:14)
[2019-11-03] MEDS ORDERED: PROCHLORPERAZINE INJ 5 MG/ML 2 ML VIAL IV PRN (15:16)
[2019-11-03] MEDS ORDERED: fentaNYL* 50 MCG/ML 2 ML VIAL (100 MCG VIAL) IV PRN (15:16)
[2019-11-03] MEDS ORDERED: HYDROmorphone INJ1* 1 MG/ML SYRINGE IV PRN (15:16)
[2019-11-03] MEDS ORDERED: DiMENhydriNATE IV* 50 MG/ML VIAL IV PUSH PRN (15:16)
[2019-11-03] MEDS ORDERED: Naloxone* 0.4 MG/ML 1 ML VIAL IV PRN (15:16)
[2019-11-03] MEDS ORDERED: Midazolam* 1 MG/ML 5 ML VIAL (5 MG) ONE (15:24)
[2019-11-03] MEDS ORDERED: Rocuronium* 10 MG/ML VIAL ONE (15:24)
[2019-11-03] MEDS ORDERED: KETAMINE HCL* 50 MG/ML 10 ML VIAL ONE (15:24)
[2019-11-03] MEDS ORDERED: fentaNYL* 50 MCG/ML 5 ML VIAL (250 MCG VIAL) ONE (15:24)
[2019-11-03] MEDS ORDERED: Dexamethasone IV* 4 MG/ML 1 ML (4 MG) ONE (15:38)
[2019-11-03] MEDS ORDERED: Ondansetron INJ* 2 MG/ML VIAL ONE (15:38)
[2019-11-03] MEDS ORDERED: Famotidine IV* 10 MG/ML 2 ML (20 mg) ONE (15:39)
[2019-11-03] MEDS ORDERED: Bupivacaine 0.25% EPI 200,000* 30 ML SDV ONE (15:49)
[2019-11-03] MEDS ORDERED: Lactated Ringers 1000 ML Bag* 1,000 ML IV SCH (16:00)
[2019-11-03] MEDS ORDERED: Propofol* 10 MG/ML 20 ML BTL ONE (16:31)
[2019-11-03] MEDS ORDERED: Ketorolac INJ* 30 MG/ML 1 ML VIAL ONE (16:31)
[2019-11-03] MEDS ORDERED: Lidocaine 2% PF * 5 ML VIAL ONE (16:31)
[2019-11-03] MEDS ORDERED: Sugammadex * 500 MG/5 ML VIAL IV PUSH ONE (16:31)
--- NOTE | 2019-11-03 17:00 | OP ---
Operative Report - Blank - Operative Report Date of Operation: 11/03/19 Note: Pre-OP Diagnoses: acute appendicitis Post-op Diagnosis: same Procedure: Laparoscopic appendectomy Surgeon: Nic Asst: none Anethesia: GETA EBL: minimal IVF: crystalloid Specimen: appendix Drains: none
[2019-11-03] MEDS ORDERED: fentaNYL* 50 MCG/ML 2 ML VIAL (100 MCG VIAL) ONE (17:31)
[2019-11-03] MEDS ORDERED: Acetaminophen TAB* 325 MG ONE (18:24)
[2019-11-03 19:19] VITALS: BP 147/85
--- NOTE | 2019-11-04 01:45 | DS ---
DISCHARGE SUMMARY: DATE OF ADMISSION: DATE OF DISCHARGE: 11/03/19 CONDITION ON DISCHARGE: The patient discharged home in stable condition. HOSPITAL COURSE: Mr. Neil was admitted, who had a diagnosis of acute appendicitis, went to the ope rating room for a laparoscopic appendectomy. Please see report. In the PACU, the patient was for pl anned discharge home in stable condition with return to his previous meds and a prescription for Perc ocet, for planned followup with [facility]. [id number]/[facility] #: [id number]
--- NOTE | 2019-11-04 02:19 | OP ---
CC: Primary Care Doctor; [facility] OPERATIVE REPORT: DATE OF OPERATION: 11/03/19 DATE OF : 89 SURGEON: Marcel Lucero MD. MEDICAL ASSISTANT SECRETARY: CASE Ortez student. ANESTHESIOLOGIST: Dr. Warren. ANESTHESIA: General anesthesia. PRE-OP DIAGNOSIS: Acute appendicitis. POST-OP DIAGNOSIS: Acute appendicitis. OPERATIVE PROCEDURE: Laparoscopic appendectomy. ESTIMATED BLOOD LOSS: Minimal blood loss. FLUIDS: Crystalloid fluid given. See anesthesia report for details. SPECIMENS: Appendix, nonperforated. DRAINS: None. COMPLICATIONS: None. INDICATIONS: The patient was identified in the preoperative area. I discussed the case with him and his family members. I went over the risks, benefits, and alternatives of laparoscopic appendectomy. I have recommended this given the workup and after examining the patient, the patient agreed and si gned consent. DESCRIPTION OF PROCEDURE: He was marked and taken to the operating room, placed on the operating jareth m table in a supine position. Preoperative antibiotics were being delivered already to the patient. SCDs were placed. The patient's abdomen was clipped of hair, prepped and draped in the standard terry gical fashion. A time-out was performed. An infraumbilical incision was made. The skin was elevated and a Veress needle was inserted into the abdominal cavity, which was allowed to insufflate to a pressure of 15 mmHg. The patient tolerated t he insufflation well. A right upper quadrant 12 mm Optical trocar was then inserted. Laparoscope wa s inserted through this. There was no evidence of injury from the trocar insertion over the Veress ne edle, which was then removed. A 5 mm trocar was then placed in the umbilicus and a 5 mm in the supra pubic area. Table was repositioned. Dilated firm appendix was identified in the right lower quadrant. Sharp dis section was carried out to free it from the lateral wall. We made a window at the base of the append ix and a 30 mm jordan ANTHONY stapling device was fired across this through healthy tissue. The mesoappendi x was taken with a 45 mm hernandez ANTHONY stapling device and the appendix was placed in an endoscopic retrie therese bag and removed through the right upper quadrant port site. This had to be dilated to get the sp ecimen out. Review of the pelvis showed scant free fluid. The sigmoid colon appeared intact as did the small bowel. There was no fluid above the liver. The abdomen was allowed to collapse. Trocar wa s removed under direct vision after the specimen removed and all 3 skin incisions were reapproximated with 4-0 Monocryl subcuticular sutures. [id number]/[facility] #: [id number]
== END 2019-11-03 18:58 | disposition home or self-care (01) | DRG 343 ==
LOC: ED 19:38 → INTOOBSV 11-03 00:34 → MED 11-03 00:34
PROVIDERS: ADMIT Surgery; ATTEND Surgery
DX: K35.80 Unspecified acute appendicitis (principal); R10.9 Unspecified abdominal pain; R42 Dizziness and giddiness; R11.2 Nausea with vomiting, unspecified; E66.9 Obesity, unspecified; Z79.899 Other long term (current) drug therapy
CPT/HCPCS: 36415; 74177; 80053; 81003; 83605; 83690; 85025; 86140; 88304; 96365; 96366; 96376; 99284; A9270-GY; G0378; J1100; J1885; J2250; J2405; J2543; J2704; J3010; Q9967